=== PATIENT | female | born 1955 | race Caucasian/White ===

== ENCOUNTER 2025-04-02 14:37 | Outpatient (CLI) | payer OTHER, SELFPAY | END 2025-04-02 14:38 | disposition home or self-care (01) | PROVIDERS: PCP Family Medicine; Visit Provider Family Medicine | DX: R63.4 Abnormal weight loss (principal); R82.90 Unspecified abnormal findings in urine; Z68.24 Body mass index [BMI] 24.0-24.9, adult; Z79.899 Other long term (current) drug therapy | CPT/HCPCS: 80053; 82607; 84439; 84443; 87086 ==

== ENCOUNTER 2025-05-21 13:06 | Outpatient (CLI) | payer MEDICARE, SELFPAY | END 2025-05-21 13:07 | disposition home or self-care (01) | PROVIDERS: PCP Family Medicine; Visit Provider Family Medicine | DX: E05.90 Thyrotoxicosis, unspecified without thyrotoxic crisis or storm (principal); R79.89 Other specified abnormal findings of blood chemistry | CPT/HCPCS: 80076; 84439; 84480 ==

== ENCOUNTER 2025-05-30 11:07 | Outpatient (CLI) | payer MEDICARE, SELFPAY ==
--- NOTE | 2025-05-30 10:45 | CRLHL7_ITS ---
For Patients: As a result of the Century Cures Act, medical imaging exams and procedure reports are released immediately into your electronic medical record. You may view this report before your referring provider. If you have questions, please contact your health care provider. INDICATION: Abnormal LFTs, abnormal weight loss COMPARISON: none TECHNIQUE: Real time bennett scale imaging and color Doppler analysis was performed of the right upper quadrant. FINDINGS: The patient`s liver is of normal size and has uniform echogenicity. There is a normal appearance of the hepatic IVC and proximal abdominal aorta. There is no evidence of ascites. The gallbladder is of normal size and there is no evidence of intraluminal stones or sludge. The gallbladder wall measures 2 mm in thickness. The common bile duct is of normal size and measures 7 mm in diameter at the level of the william hepatis. The pancreas appears normal. There is no evidence of a stone or hydronephrosis within the right kidney. The right kidney measures 8.8 cm in length. IMPRESSION: Normal right upper quadrant ultrasound. Dictated by Aj Grimes MD @ 05/30/2025 12:05:18 PM (Electronically Signed)
== END 2025-05-30 11:08 | disposition home or self-care (01) ==
PROVIDERS: PCP Family Medicine; Visit Provider Family Medicine
DX: R79.89 Other specified abnormal findings of blood chemistry (principal); R63.4 Abnormal weight loss
CPT/HCPCS: 76705

== ENCOUNTER 2025-07-09 15:33 | Outpatient (CLI) | payer MEDICARE, SELFPAY | END 2025-07-09 15:34 | disposition home or self-care (01) | LOC: NFLDREF 07-15 17:21 | PROVIDERS: PCP Family Medicine; Referring Provider Family Medicine; Visit Provider Physician Assistant | DX: R53.83 Other fatigue (principal); R42 Dizziness and giddiness; Z79.899 Other long term (current) drug therapy; R79.89 Other specified abnormal findings of blood chemistry | CPT/HCPCS: 82306; 82728; 86038 ==

== ENCOUNTER 2025-07-22 09:18 | Outpatient (CLI) | payer MEDICARE, SELFPAY ==
--- NOTE | 2025-07-22 09:15 | CRLHL7_ITS ---
For Patients: As a result of the Century Cures Act, medical imaging exams and procedure reports are released immediately into your electronic medical record. You may view this report before your referring provider. If you have questions, please contact your health care provider. INDICATION: Dizziness and giddiness. TECHNIQUE: Brain and temporal bone MRI without and with contrast. 11 cc of Dotarem gadolinium based intravenous contrast administered. COMPARISON : None. FINDINGS: Inner ears/membranous labyrinths: Within normal limits. Internal auditory canals: Within normal limits. Cerebellopontine angle cisterns: Within normal limits. Posterior fossa structures: Within normal limits. Temporal bones/mastoid air cells: Within normal limits. No evidence of acute ischemia. No evidence of acute or chronic intracranial blood products. No mass or pathologic intracranial enhancement. Patchy FLAIR hyperintensity throughout the supratentorial white matter and brainstem, typical for chronic microvascular ischemic change. Ifdx-ok-rwznxfzu generalized parenchymal volume loss. No hydrocephalus or extra-axial collections. The pituitary gland, parasellar structures and optic chiasm are normal. All the major intracranial vascular structures demonstrate normal flow-related signal. The orbital contents are normal. No calvarial or skull base marrow replacing process. No obstructive sinus disease. No extracranial soft tissue findings. IMPRESSION: 1. Normal appearance of the internal auditory pathways on high resolution imaging of the temporal bones. No mass or pathologic enhancement within the internal auditory canals or CPA cisterns. Normal appearance of the 7th/8th cranial nerves. 2. No acute ischemia. No mass or pathologic enhancement within the brain. 3. Moderate burden of chronic microvascular ischemic changes. Varb-yt-lbpmmfkt generalized parenchymal volume loss. Dictated by Lee Martino MD @ 07/22/2025 4:27:33 PM (Electronically Signed)
== END 2025-07-22 09:19 | disposition home or self-care (01) ==
LOC: MRI 09:19
PROVIDERS: PCP Family Medicine; Visit Provider Physician Assistant
DX: R42 Dizziness and giddiness (principal); G31.9 Degenerative disease of nervous system, unspecified; G44.229 Chronic tension-type headache, not intractable; R26.89 Other abnormalities of gait and mobility
CPT/HCPCS: 70553; A9575

== ENCOUNTER 2025-08-06 18:15 | Emergency (ER) | payer MEDICARE, SELFPAY ==
--- OUTSIDE RECORDS SUMMARY | 2025-08-06 18:17 | XMS_ITS | Encounter Summary ---
Author Organization [facility] Address [address] [place] [address] Care Team Providers Care National Accounts Recruiter Name Role Phone Skye Yip DO Primary Care Provider [phone] Encounter Details Date Type Department Care Team (Late st Contact Info) Description 07/06/2017 Scanned History External to Transferred Record, Provider [facility] CARDIOLOG[facility] Social History Tobacco Use Types Packs/Day Years Used Date Smoking Tobacco: Never Assessed Comments Unknown Sex and Gender Information Value Date Recorded Sex Assigned at Female 10/08/2021 7:52 PM SEARCH ENGINE OPTIMIZATION STRATEGIST Legal Sex Female 2:31 PM CDT Gender Identity Female 10/08/2021 7:52 PM SEARCH ENGINE OPTIMIZATION STRATEGIST Sexual Orientation Straight 10/08/2021 7: 52 PM SEARCH ENGINE OPTIMIZATION STRATEGIST documented as of this encounter Plan of Treatment Not on file documented as of this encounter Visit Diagnoses Not on filedocumented in this encounter Care Teams National Accounts Recruiter Relationship Specialty Start Date End Date Skye Yip DO [address] [place] [address] PCP - General Family Practice 08/31/18 06/23/25 documented as of this encounter
--- OUTSIDE RECORDS SUMMARY | 2025-08-06 18:17 | XMS_ITS | Encounter Summary ---
Author Organization [facility] Address [address] [place] [address] Care Team Providers Care Strategy Intern Name Role Phone Skye Yip DO Primary Care Provider [phone] Reason for Visit * Reason Comments Refill meclizine (ANTIVERT) 25 MG tablet [Pharmacy Med Name: MECLIZINE 25MG RX TABLETS] Encounter Details Date Type Department Care Team (Late st Contact Info) Description 06/19/2025 [facility] [address] [place], [place] [address] Skye Yip DO [address] [place] [address] Refill (meclizine (ANTIVERT) 25 MG tablet [Pharmacy Med Name: MECLIZINE 25MG RX TABLETS]) Social History Tobacco Use Types Packs/Day Years Used Date Smoking Tobacco: Former Cigarettes 1 36 0 12/01/1975 - 12/01/2011 Smokeless Tobacco: Never Alcohol Use Standard Drinks/Week Comments Not Currently 0 (1 standard drink = 0.6 oz pur e alcohol) rarely Humiliation, Afraid, Rape, and Kick questionnair e Answer Date Recorded Fear of Current or Ex-Partner Not on file Emotionally Abused Not on file 02/14/2024 Within the last year, have y ou been kicked, hit, slapped, or otherwise physically hurt by your partner or ex-partner? No 02/14/2024 Within the last year, have y ou been raped or forced to have any kind of sexual activity by your partner or ex-partner? No 02/14/2024 PHQ-2 Answer Date Recorded PHQ-2 Score 1 05/07/2024 Comments No Sex and Gender Information Value Date Recorded Sex Assigned at Female 10/08/2021 7:52 PM BAGGING MACHINE OPERATOR Legal Sex Female 2:31 PM CDT Gender Identity Female 10/08/2021 7:52 PM BAGGING MACHINE OPERATOR Sexual Orientation Straight 10/08/2021 7: 52 PM BAGGING MACHINE OPERATOR documented as of this encounter Nursing Notes * Nancy Farris - 06/24/2025 12:25 PM CDT Medication Refill - Due for Visit Medication still pending, patient is due to be seen in the next 30 days. Called patient, was: Successful in reaching patient. We recently received a refill request for one of your medications. To continue managing your medication refills, your clinician would like to see you for a(n): Patient is due for a: Video/Office Visit Patient declined to schedule due to: Patient no longer receiving care within organization. Patient has moved recently and is no longer being seen at . Frontline Action: Remove pended medication and Sign Visit or if unable, route as low priority to Refill blending machine operator. * Ping Amador - 06/24/2025 9:37 AM CDT Medication Refill - Due for Visit Medication still pending, patient is due to be seen in the next 30 days. Called patient, was: unable to reach patient. 2nd call attempted. Unsuccessful in reaching patient. Frontline Action: Route to clinician identified in nursing documentation below. Clinician Action: Unsuccessful in reaching patient to schedule, requests refill. Please determine whether refill is appropriate. Recommend using ???Refuse All?? quick action to address request. * Ping Amador - 06/19/2025 1:14 PM CDT Medication Refill - Due for Visit Medication still pending, patient is due to be seen in the next 30 days. Called patient, was: unable to reach patient. 1st call attempted. Left message to call back. Scheduling Action: Patient needs to schedule an appointment in the next 30 days. If able to schedule, please document date of appointment and route to clinician/pool identified in nursing documentation below. * Karlene Bearden RN - 06/19/2025 9:19 AM CDT Further Assistance Needed on Refill from Medical Record Clerk Patient is due for Qualifying Visit or Qualifying Visit and lab(s). Medication is still pending. Patient is due for an Office/Video Visit in the next 30 days. Call Patient and document using .MROVERDUE. After attempting to schedule patient: If appointment is scheduled within 60 days: Please route to: Primary Care: Refill strategic solutions consultant Specialty Care: Refill strategic solutions consultant/Care Team Pool If unable to schedule appointment or scheduled greater than 60 days: Please route to: Skye Yip, Requested Prescriptions Pending Prescriptions Disp Refills meclizine (ANTIVERT) 25 MG tablet [Pharmacy Med Name: MECLIZINE 25MG RX TABLETS] 30 Tablet Sig: TAKE 1 TABLET(25 MG) BY MOUTH TWICE DAILY NEEDED * Pamela Nam Xrwcomm - 06/19/2025 3:17 AM CDT meclizine (ANTIVERT) 25 MG tablet [Pharmacy Med Name: MECLIZINE 25MG RX TABLETS] Medication started: 02/14/2024 Last ordered by SKYE YIP: 05/07/2024 (408 days ago) QTY: 30, Refills: 1, Sig: take 1 tablet (25 mg) by mouth two times daily as needed. (changed but equivalent) -> An office visit is overdue (performed 14 months ago, required every 12 months). Last qualifying visit: 05/07/2024 (with SKYE YIP) Next scheduled visit: None [facility] Embedded Refills, Reference: [id number], 06/19/2025 3:17:43 AM CDT, Pool: HP Refill Centralized Services - Primary Care ([id number]) documented in this encounter Plan of Treatment Not on file documented as of this encounter Visit Diagnoses Not on filedocumented in this encounter Care Teams Strategy Intern Relationship Specialty Start Date End Date Skye Yip DO [address] [place] [address] PCP - General Family Practice 08/31/18 06/23/25 documented as of this encounter
--- OUTSIDE RECORDS SUMMARY | 2025-08-06 18:17 | XMS_ITS | Encounter Summary ---
Author Organization [facility] Address [address] [place] [address] Care Team Providers Care Lay Out Technician Name Role Phone Skye Yip DO Primary Care Provider Encounter Details Date Type Department Care Team (Late st Contact Info) Description 09/20/2019 Correspondence Security Contact - Shelli Johnson No Primary/Referring , Phy MEDICAL NECESSITY FORM EYEWEAR BENEFIT Social History Tobacco Use Types Packs/Day Years Used Date Smoking Tobacco: Former Cigarettes Smokeless Tobacco: Never Alcohol Use Standard Drinks/Week Comments Yes 0 (1 standard drink = 0.6 oz pur e alcohol) rarely Comments No Sex and Gender Information Value Date Recorded Sex Assigned at Female 10/08/2021 7:52 PM LEGAL CASHIER Legal Sex Female 2:31 PM CDT Gender Identity Female 10/08/2021 7:52 PM LEGAL CASHIER Sexual Orientation Straight 10/08/2021 7: 52 PM LEGAL CASHIER documented as of this encounter Plan of Treatment Not on file documented as of this encounter Visit Diagnoses Not on filedocumented in this encounter Care Teams Lay Out Technician Relationship Specialty Start Date End Date Skye Yip DO [address] [place] [address] PCP - General Family Practice 08/31/18 06/23/25 documented as of this encounter
--- OUTSIDE RECORDS SUMMARY | 2025-08-06 18:17 | XMS_ITS | Encounter Summary ---
Author Organization [facility] Address [address] [place] [address] Care Team Providers Care Curator Of Education Name Role Phone Skye Yip DO Primary Care Provider [phone] Reason for Visit * Reason Comments Refill amiodarone (PACERONE ) 200 MG tablet [Pharmacy Med Name: AMIODARONE 200MG TABLETS] Encounter Details Date Type Department Care Team (Late st Contact Info) Description 06/20/2025 Refill [facility] [address] [facility] [place], [place] [address] China Briggs PA-C [address] [place] [address] Refill (amiodarone (PACERONE) 200 MG tablet [Pharmacy Med Name: AMIODARONE 200MG TABLETS]) Social History Tobacco Use Types Packs/Day [...] Sex Assigned at Female 10/08/2021 7:52 PM EDUCATION ADVISER Legal Sex Female 2:31 PM CDT Gender Identity Female 10/08/2021 7:52 PM EDUCATION ADVISER Sexual Orientation Straight 10/08/2021 7: 52 PM EDUCATION ADVISER documented as of this encounter Nursing Notes [...] unable, route as low priority to Refill spool hauler. * Pamela Nam Xrwcomm - 06/20/2025 3:18 AM CDT amiodarone (PACERONE) 200 MG tablet [Pharmacy Med Name: AMIODARONE 200MG TABLETS] Medication started: 07/26/2019 Last ordered by CHINA BRIGGS 07/10/2024 (345 days ago) QTY: 90, Refills: 0, Sig: take 1 tablet (200 mg) by mouth daily. (changed but equivalent) -> Medication cannot be delegated. -> A qualifying visit was not found within the last 2 years. Last qualifying visit: None (A recent visit (in Family Practice with SKYE YIP) was found) Next scheduled visit: None [facility] Embedded Refills, Reference: [id number], 06/20/2025 3:18:16 AM CDT, Pool: HP Refill Centralized Services - Primary Care ([id number]) documented in this encounter Plan of Treatment Not on file documented as of this encounter Visit Diagnoses Diagnosis PAF (paroxysmal atrial fibrillation) (HRC) Atrial fibrillation documented in this encounter Care Teams Curator Of Education Relationship Specialty Start Date End Date Skye Yip DO [address] [place] [address] PCP - General Family Practice 08/31/18 06/23/25 documented as of this encounter
--- OUTSIDE RECORDS SUMMARY | 2025-08-06 18:17 | XMS_ITS | Encounter Summary ---
Author Organization [facility] Address [address] [place] [address] Care Team Providers Care Program Services Assistant Name Role Phone Skye Yip DO Primary Care Provider [phone] Encounter Details Date Type Department Care Team (Late st Contact Info) Description 05/26/2017 Scanned History External to Transferred Record, Provider [facility] CARDIOLOG[facility] Social History Tobacco Use Types Packs/Day Years Used Date Smoking Tobacco: Never Assessed Comments Unknown Sex and Gender Information Value Date Recorded Sex Assigned at Female 10/08/2021 7:52 PM ADDRESSING MACHINE OPERATOR Legal Sex Female 2:31 PM CDT Gender Identity Female 10/08/2021 7:52 PM ADDRESSING MACHINE OPERATOR Sexual Orientation Straight 10/08/2021 7: 52 PM ADDRESSING MACHINE OPERATOR documented as of this encounter Plan of Treatment Not on file documented as of this encounter Visit Diagnoses Not on filedocumented in this encounter Care Teams Program Services Assistant Relationship Specialty Start Date End Date Skye Yip DO [address] [place] [address] PCP - General Family Practice 08/31/18 06/23/25 documented as of this encounter
--- OUTSIDE RECORDS SUMMARY | 2025-08-06 18:17 | XMS_ITS | Encounter Summary ---
Author Organization [facility] Address [address] [place] [address] Care Team Providers Care Oil Tester Name Role Phone Skye Yip DO Primary Care Provider Reason for Visit * Reason Comments Refill ELIQUIS 5 MG tablet [Pharmacy Med Name: ELIQUIS 5MG TABLETS] Encounter Details Date Type Department Care Team (Late st Contact Info) Description 06/19/2025 Telephone [facility] [address] [place], [place] [address] Skye Yip DO [address] [facility] [place] [address] Refill (ELIQUIS 5 MG tablet [Pharmacy Med Name: ELIQUIS 5MG TABLETS]) Social History Tobacco Use Types Packs/Day [...] Sex Assigned at Female 10/08/2021 7:52 PM MEDICAL CONSULTANT Legal Sex Female 2:31 PM CDT Gender Identity Female 10/08/2021 7:52 PM MEDICAL CONSULTANT Sexual Orientation Straight 10/08/2021 7: 52 PM MEDICAL CONSULTANT documented as of this encounter Nursing Notes * Nancy Farris - 06/24/2025 12:22 PM CDT Medication Refill - Due for [...] route as low priority to Refill spool tender. * Wang Sandhu - 06/20/2025 1:49 PM CDT Medication Refill - Due for [...] to clinician/pool identified in nursing documentation below. Wang Sandhu 06/20/2025, 1:49 PM * Skye Yip DO - 06/19/2025 8:23 AM CDT Please use .JANIA to schedule annual medicare / Med check / Fasting labs Thanks Health Maintenance Due Topic Date Due Lung Cancer Screening Never done Zoster/Shingles Vaccine (2 of 2) 08/06/2019 Dexa Never done Colonoscopy 07/07/2022 Cholesterol 02/09/2024 COVID-19 Vaccine ( season) 2024 Med Monitoring Hepatic (ALT) 08/30/2024 Med Monitoring TSH 08/30/2024 Prediabetes: HGBA1C 08/30/2024 Medicare Annual Wellness Visit 10/23/2024 Med Monitoring HEM (Hemogram/PLTS) 02/13/2025 Med Monitoring Renal (Creatinine) 02/13/2025 Med Monitoring Renal (Sodium) 02/13/2025 Med Monitoring Renal (Potassium) 02/13/2025 Mammogram 05/07/2025 * Pamela Namwcomkristina - 06/19/2025 3:17 AM CDT ELIQUIS 5 MG tablet [Pharmacy Med Name: ELIQUIS 5MG TABLETS] Medication started: 06/16/2021 Last ordered by SKYE YIP: 05/07/2024 (408 days ago) QTY: 180, Refills: 3, Sig: take 1 tablet (5 mg) by mouth two times a day. (changed but equivalent) -> The most recent order on 05/07/2025. -> Medication cannot be delegated. Last qualifying visit: 05/07/2024 (with SKYE YIP) Next scheduled visit: None [facility] Embedded Refills, Reference: [id number], 06/19/2025 3:17:43 AM CDT, Pool: Refill Centralized Services - Primary Care ([id number]) documented in this encounter Plan of Treatment Scheduled Orders Name Type Priority Associated Diagnoses Orde r Schedule Complete Blood Count -W/Diff Lab Routine Encounter for long-term (current) use of medications Expected: 06/19/2025, Expires: 09/17/2025 Hgb A1C Lab Routine Encounter for long-term (current) use of medications Expected: 06/19/2025, Expires: 06/19/2030 Lipid Panel & Direct LDL (if Needed) Lab Routine Encounter for long-term (current) use of medications Expected: 06/19/2025, Expires: 06/19/2030 Comprehensive Metabolic Panel Lab Routine Encounter for long-term (current) use of medications Expected: 06/19/2025, Expires: 06/19/2030 documented as of this encounter Visit Diagnoses Diagnosis Encounter for long-term (current) use of medications- Primary Encounter for long-term (current) use of other medications documented in this encounter Care Teams Oil Tester Relationship Specialty Start Date End Date Skye Yip DO [address] [place] [address] PCP - General Family Practice 08/31/18 06/23/25 documented as of this encounter
--- OUTSIDE RECORDS SUMMARY | 2025-08-06 18:17 | XMS_ITS | Encounter Summary ---
Author Organization [facility] Address [address] [place] [address] Care Team Providers Care Processing Archivist Name Role Phone Skye Yip DO Primary Care Provider [phone] Reason for Visit * Reason Comments Refill Encounter Details Date Type Department Care Team (Late st Contact Info) Description 06/23/2025 Refill [facility] [address] [facility] [place], [place] [address] Erlinda Loera MD [address] [place], [place] [address] Refill Social History Tobacco Use Types Packs/Day Years [...] Sex Assigned at Female 10/08/2021 7:52 PM HUMAN RESOURCES SUPERVISOR Legal Sex Female 2:31 PM CDT Gender Identity Female 10/08/2021 7:52 PM HUMAN RESOURCES SUPERVISOR Sexual Orientation Straight 10/08/2021 7: 52 PM HUMAN RESOURCES SUPERVISOR documented as of this encounter Nursing Notes * Erlinda Loera MD - 08/04/2025 9:11 AM CDT Per PDMP gabapentin Rx per Brooks Smart MD 09/12/25 and 02/19/25 has not been filled since. Rx declined, no refills from this clinic without a completed appointment. * Destiny Crump RN - 08/04/2025 8:04 AM CDT Last appt 04/23/24. Follow up appt due July 2024. Left message to call back for assessment and appt. Routed to Dr. Loera for review. Pt has been contacted multiple times about scheduling a f/u appt, but no response. Okay to deny refill for now? * Ghazal Ambriz RN - 07/24/2025 3:49 PM CDT MyChart sent with assessment questions and request to schedule (second attempt to contact). Pt may need one more phone call if no response. * Destiny Crump RN - 07/01/2025 9:16 AM CDT Last appt 04/23/24. Follow up appt due July 2024. Left message to call back for assessment and appt. * Aixa Becerra - 06/26/2025 8:05 AM CDT Appt overdue (needs call) documented in this encounter Plan of Treatment Not on file documented as of this encounter Visit Diagnoses Diagnosis Generalized anxiety disorder (HRC) Generalized anxiety disorder documented in this encounter Care Teams Processing Archivist Relationship Specialty Start Date End Date Skye Yip DO [address] [place] [address] PCP - General Family Practice 08/31/18 06/23/25 documented as of this encounter
--- OUTSIDE RECORDS SUMMARY | 2025-08-06 18:17 | XMS_ITS | Encounter Summary ---
Author Organization [facility] Address [address] [place] [address] Care Team Providers Care Copy Worker Name Role Phone Skye Yip DO Primary Care Provider [phone] Encounter Details Date Type Department Care Team (Late st Contact Info) Description 07/06/2017 Scanned History External to Transferred Record, Provider [facility] CARDIOLOG[facility] Social History Tobacco Use Types Packs/Day Years Used Date Smoking Tobacco: Never Assessed Comments Unknown Sex and Gender Information Value Date Recorded Sex Assigned at Female 10/08/2021 7:52 PM LOADER MACHINE Legal Sex Female 2:31 PM CDT Gender Identity Female 10/08/2021 7:52 PM LOADER MACHINE Sexual Orientation Straight 10/08/2021 7: 52 PM LOADER MACHINE documented as of this encounter Plan of Treatment Not on file documented as of this encounter Visit Diagnoses Not on filedocumented in this encounter Care Teams Copy Worker Relationship Specialty Start Date End Date Skye Yip DO [address] [place] [address] PCP - General Family Practice 08/31/18 06/23/25 documented as of this encounter
--- OUTSIDE RECORDS SUMMARY | 2025-08-06 18:17 | XMS_ITS | Encounter Summary ---
Author Organization [facility] Address [address] [place] [address] Care Team Providers Care Eyewear Consultant Name Role Phone Unavailable Primary Care Provider Unavailabl e Reason for Visit * Reason Comments Refill meclizine (ANTIVERT) 25 MG tablet [Pharmacy Med Name: MECLIZINE 25MG RX TABLETS] Encounter Details Date Type Department Care Team (Late st Contact Info) Description 07/01/2025 Refill [facility] [address] [place], [place] [address] Skye Yip, DO [address] [place], [place] [phone] Refill (meclizine (ANTIVERT) 25 MG tablet [Pharmacy [...] Sex Assigned at Female 10/08/2021 7:52 PM PHOTOGRAPHY AND PRINTS CURATOR Legal Sex Female 2:31 PM CDT Gender Identity Female 10/08/2021 7:52 PM PHOTOGRAPHY AND PRINTS CURATOR Sexual Orientation Straight 10/08/2021 7: 52 PM PHOTOGRAPHY AND PRINTS CURATOR documented as of this encounter Nursing Notes * Aura Horner, RN - 07/02/2025 9:13 AM CDT Refill request denied. Request sent to incorrect clinician. * Pamela Nam Xrwcomm - 07/01/2025 3:18 AM CDT meclizine (ANTIVERT) 25 MG tablet [Pharmacy Med Name: MECLIZINE 25MG RX TABLETS] Medication started: 02/14/2024 Last ordered by SKYE YIP: 05/07/2024 (420 days ago) QTY: 30, Refills: 1, Sig: take 1 tablet (25 mg) by mouth two times daily as needed. (changed but equivalent) -> An office visit is overdue (performed 14 months ago, required every 12 months). Last qualifying visit: 05/07/2024 (with SKYE YIP) Next scheduled visit: None [facility] Embedded Refills, Reference: [id number], 07/01/2025 3:18:13 AM CDT, Pool: Refill Centralized Services - Primary Care ([id number]) documented in this encounter Plan of Treatment Not on file documented as of this encounter Visit Diagnoses Not on filedocumented in this encounter
--- OUTSIDE RECORDS SUMMARY | 2025-08-06 18:18 | XMS_ITS | Clinical Summary ---
Author Organization [facility] Address [facility] [place] [address] Care Team Providers Care Surfboard Maker Name Role Phone No Ref-Primary, Physician Primary Care Provider Allergies Active Allergy Reactions Criticality Noted Date Comments Other Drug Allergy (See Comments) 06/16/2021 Opiates Penicillins Other (See Comments) 02/19/2018 Makes her symptoms worse Medications atorvastatin (LIPITOR) 40 MG tablet Take 40 mg by mouth daily 9 Active furosemide (LASIX) 20 MG tablet TAKE ONE TABLET BY MOUTH EVERY DAY 8 Active pantoprazole (PROTONIX) 20 MG EC tablet Take 20 mg by mouth daily 8 Active medical cannabis (Patient's own supply) 1 Dose by Other route See Admin Instructions Oil (The purpose of this order is to document that the patient reports taking medical cannabis. This is not a prescription, and is not used to certify that the patient has a qualifying medical condition.) Active ezetimibe (ZETIA) 10 MG tablet Take 10 mg by mouth daily Active sertraline (ZOLOFT) 100 MG tablet Take 200 mg by mouth daily Active amiodarone (PACERONE) 200 MG tabletIndication s:Paroxysmal atrial fibrillation with RVR (H) Take 1 tablet (200 mg) by mouth daily 30 tablet 1 Active metoprolol succinate ER (TOPROL-XL) 25 MG 24 hr tabletIndication s:Paroxysmal atrial fibrillation with RVR (H) Take 1 tablet (25 mg) by mouth daily 30 tablet 1 Active Active Problems Problem Noted Date Diagnosed Date Hypokalemia 06/16/2021 Paroxysmal atrial fibrillation with RVR 06/16/20 21 Social History Tobacco Use Types Packs/Day Years Used Date Smoking Tobacco: Never Smokeless Tobacco: Never Adolescent Education Answer Date Record ed Getting School Help Needed Not on file 07/14 Comments No Sex and Gender Information Value Date Recorded Sex Assigned at Not on file Legal Sex Female 9:15 AM CDT Gender Identity Not on file Sexual Orientation Not on file Last Filed Vital Signs Vital Sign Reading Time Taken Comments Blood Pressure 144/71 06/16/2021 12:52 PM CDT Pulse 68 06/16/2021 12:52 PM CDT Temperature 37 C (98.6 F) 06/16/2021 12:52 PM CDT Respiratory Rate 18 06/16/2021 1:00 PM CDT Oxygen Saturation 92% 06/16/2021 12:52 PM CDT Inhaled Oxygen Concentration - - Weight 81.3 kg (179 lb 4.8 oz) 06/16/2021 2:21 P M CDT Height 160 cm (5' 3) 11/19/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 Intubation to prevent or reverse respiratory instability may be performed. Question Answer Comments Code status determined by: Discussion with patie nt/ legal decision maker Care Teams Surfboard Maker Relationship Specialty Start Date End Date No Ref-Primary, Physician PCP - General 06/01/19
--- OUTSIDE RECORDS SUMMARY | 2025-08-06 18:18 | XMS_ITS | Clinical Summary ---
Author Organization [facility] Address [address] [place] [address] Care Team Providers Care Service Center Assistant Name Role Phone Unavailable Primary Care Provider Unavailabl e Source Comments You are receiving this document as you are listed as the primary care provider,follow-up provider, or the patient has been referred to you for consultation.This is in compliance with the Medicare andMedicaid EHR Incentive Program,which states Providers who transition their patient to another setting of careor provider of care or refers their patient to another provider of care shouldprovide summary care record for each transition of care or referral. [facility] Allergies Active Allergy Reactions Criticality Noted Date Comments Other Itching,Other, see comments 06/23/2021 Pain pills Penicillins Other, see comments 02/19/2018 Makes her symptoms worse Medications Coenzyme Q10 (CO Q 10 OR) Active medical cannabis patient certified 05/06/20 21 Active cyclobenzaprine (FLEXERIL) 10 MG tablet TAKE 1 TABLET(10 MG) BY MOUTH THREE TIMES DAILY NEEDED FOR MUSCLE SPASMS 30 Tablet 01/23/[address] (PROTONIX) 40 MG tabletIndicatio ns:Gastritis determined by endoscopy take 1 tablet daily 90 Tablet 2 04/05/20 24 Active atorvastatin (LIPITOR) 40 MG tabletIndicatio ns:CAD S/P percutaneous coronary angioplasty (HRC),Hyperchol esterolemia take 1 tablet daily 90 Tablet 2 04/05/20 24 Active meclizine (ANTIVERT) 25 MG tablet Take 1 Tablet (25 mg) by mouth two times daily as needed. 30 Tablet 1 07/16/20 24 Active amiodarone (PACERONE) 200 MG tabletIndicatio ns:PAF (paroxysmal atrial fibrillation) (HRC) Take 1 Tablet (200 mg) by mouth daily. 90 Tablet 07/10/20 24 Active ezetimibe (ZETIA) 10 MG tablet Take 1 Tablet (10 mg) by mouth daily. 90 Tablet 07/10/20 24 Active metoprolol succinate (TOPROL XL) 25 MG 24 hour release tablet Take 1 Tablet (25 mg) by mouth daily. 90 Tablet 07/10/20 24 Active FLUoxetine (PROZAC) 40 MG capsuleIndicati ons:Generalized anxiety disorder (HRC),Posttraum atic stress disorder (HRC) Take 1 Capsule (40 mg) by mouth daily. No further refills until appointment completed in 07/2024. 90 Capsule 04/23/20 24 025 Discontinued gabapentin (NEURONTIN) 100 MG capsuleIndicati ons:Generalized anxiety disorder (HRC) Take 1 Capsule (100 mg) by mouth every 24 hours as needed. for anxiety 30 Capsule 04/23/20 24 025 Discontinued Active Problems Patient Care Coordination No te Formatting of this note migh t be different from the original. This is an FYI only. No action from the clinic is required. Rosamaria Alvarez is enrolled in [facility] Please see the Problem List for care plan and Wetlands Conservation Laborer contact information. BRANDAN Gómez 05/25/2023 1:16 PM [facility] CARE MANAGMENT Rosamaria Alvarez is enrolled in the [facility] ([facility] [place] care coordination program and is assigned to a [facility] Wetlands Conservation Laborer. The palliative care nurse practitioner's role is to connect patients with home and community based supports and services when needed, reinforce your plan of care and to provide additional education, resources and assistance. The patient's care plan, including home health care services, if applicable, is faxed to the clinic and can be found under the Media tab if the clinic scans it into [facility]. For questions and collaboration, please contact the [facility] Wetlands Conservation Laborer listed in the care team. Rosamaria Alvarez reports having some dependencies with cleaning, laundry and grocery shopping. She is independent with personal cares. She also reports having some problems with vertigo and Tinnitus which affects her balance, causing her to be at risk for falls. She agrees to have an assessment to determine if she qualifies for Elderly Waivered services. A [facility] Wetlands Conservation Laborer will be contacting her to complete the EW assessment. Yeceniabrionna Urbaney, PET COUNSELOR 06/16/2022, 9:33 AM Problem Noted Date Diagnosed Date Posttraumatic stress disorder 12/18/2023 Generalized anxiety disorder 12/18/2023 Cannabis dependence 12/18/2023 Hyperparathyroidism 02/27/2023 PUD (peptic ulcer disease) 02/08/2023 Cervicalgia 02/08/2023 Former tobacco use 02/08/2023 Lumbar herniated disc 02/08/2023 Peripheral neuropathy 06/29/2022 Prediabetes 06/29/2022 PAF (paroxysmal atrial fibrillation) 08/10/2021 Tinnitus, bilateral 08/18/2020 Overview (08/18/2020): Chronic Shoulder arthritis 02/04/2020 Heme positive stool 01/08/2020 Overview (08/18/2020): 08/18/2020 Discussed overdue for colonoscopy Cervical cancer screening 06/26/2019 Overview (06/26/2019): Per visit note 06/17/19, last Pap was 30 years ago 2019 NILM, HPV negative 64 y.o. Plan: Co-test 05/2022 Dyslipidemia 09/07/2018 Overview (09/07/2018): LDL 164 09/07/2018 [facility] Summary:A history of previous ASCVD (heart attack or stroke) has been identified. Cardiovascular risk could be reduced with attention to the following, in order of priority: statin use or intensification; improving blood sugar control; [facility] Gastritis determined by endoscopy 09/05/2018 S/P ablation of atrial fibrillation 08/31/2018 CAD S/P percutaneous coronary angioplasty 2017 Benign paroxysmal positional vertigo 02/23/2018 Insomnia 02/23/2018 RUQ abdominal pain 02/23/2018 Overview (02/23/2018): chronic.the patinet states that this was evaluated in [place] with an . Plan was to do a HIDA but this was not done due to cost concerns Resolved Problems Problem Noted Date Diagnosed Date Resolved Date Hypercholesterolemia 02/23/2018 018 Encounters Date Type Department Care Team Description 07/01/2025 Refill [facility] [address] [place] [address] Skye Yip DO Refill (meclizine (ANTIVERT) 25 MG tablet [Pharmacy Med Name: MECLIZINE 25MG RX TABLETS]) 06/23/2025 Refill [place] [facility] [address] [place] [address] [place] [address] Erlinda Loera MD Refill 06/20/2025 Refill [place] [address] [place] [address] China Briggs PA-C Refill (amiodarone (PACERONE) 200 MG tablet [Pharmacy Med Name: AMIODARONE 200MG TABLETS]) 06/19/2025 Refill [place] [address] [place] [address] Skye Yip DO Refill (meclizine (ANTIVERT) 25 MG tablet [Pharmacy Med Name: MECLIZINE 25MG RX TABLETS]) 06/19/2025 Refill [facility] [place] [address] [place] [address] China Briggs PA-C Refill (metoprolol succinate (TOPROL XL) 25 MG 24 hour release tablet [Pharmacy Med Name: METOPROLOL ER SUCCINATE 25MG TABS]) 06/19/2025 Telephone [place] [address] [place] [address] Skye Yip DO Refill (ELIQUIS 5 MG tablet [Pharmacy Med Name: ELIQUIS 5MG TABLETS]) from Last 3 Months Immunizations Immunization Administration Dates Next Due Influenza IIV4 (Quadrivalent) 0.5mL (63229) 12/21,10/24/2018 PCV20 ([id number]) 02/08/2023 Pfizer Monovalent 12+ Purple Top 03/10/2021,01/22 Tdap 05/07/2024 Zoster RZV (Shingrix) 06/11/2019 Family History Medical History Relation Name Comments Cancer Mother Aruna Delavlle Heart Disease Mother Aruna Delvalle Passed on High Cholesterol Mother Aruna Delvalle Hypertension Mother Aruna Delvalle Kidney/Bladder Disease Mother Aruna Delvalle Stroke Mother Aruna Delvalle Cancer, Breast Negative Family History Cancer, Ovary Negative Family History Cataract Negative Family History Glaucoma Negative Family History Macular Degeneration Negative Family History Retinal Detachment Negative Family History Relation Name Status Comments Father Other Mother Aruna Delvalle Social History Tobacco Use Types Packs/Day Years Used Date Smoking Tobacco: Former Cigarettes 1 36 0 12/01/1975 - 12/01/2011 Smokeless Tobacco: Never Tobacco Cessation:Counseling Given: Not Answered Alcohol Use Standard Drinks/Week Comments Not Currently [...] Sex Assigned at Female 10/08/2021 7:52 PM VULCANIZING PRESS OPERATOR Legal Sex Female 2:31 PM CDT Gender Identity Female 10/08/2021 7:52 PM VULCANIZING PRESS OPERATOR Sexual Orientation Straight 10/08/2021 7: 52 PM VULCANIZING PRESS OPERATOR Last Filed Vital Signs Vital Sign Reading Time Taken Comments Blood Pressure 133/68 05/07/2024 11:49 AM CDT Pulse 49 05/07/2024 11:49 AM CDT Temperature 36.6 C (97.9 F) 02/14/2024 5:18 PM CDT Respiratory Rate 18 02/14/2024 6:30 PM CDT Oxygen Saturation 98% 02/14/2024 8:00 PM CDT Inhaled Oxygen Concentration - - Weight 74.2 kg (163 lb 9.6 oz) 05/07/2024 11:49 AM CDT Height 158.8 cm (5' 2.52) 05/07/2024 11:49 AM C DT Body Mass Index 29.43 05/07/2024 11:49 AM CDT Plan of Treatment Health Maintenance Due Date Last Done Comments Lung Cancer Screening 1955 Zoster/Shingles Vaccine (2 of 2) 08/06/2019 06/11/2019 Dexa 01/12/2021 Colonoscopy 07/07/2022 07/06/2022 Cholesterol 02/09/2024 02/08/2023, 06/24, 08/24/2020, Additional history exists Med Monitoring Hepatic (ALT) 08/30/2024 08/30/2023 (Completed), 11/04/2022 (Completed), 07/21/2021 (Completed), Additional history exists Med Monitoring TSH 08/30/2024 08/30/2023, 0 11/04/2022, 07/04/2022, Additional history exists Prediabetes: HGBA1C 08/30/2024 08/30/2023, 07/04/2022, 08/24/2020, Additional history exists Medicare Annual Wellness Visit 10/23/2024 06/03/2024, 02/27/2023, 07/21/2021 Med Monitoring HEM (Hemogram/PLTS) 02/13/2025 02/14/2024, 08/30/2023, 07/04/2022, Additional history exists Med Monitoring Renal (Creatinine) 02/13/2025 02/14/2024, 08/30/2023, 11/04/2022, Additional history exists Med Monitoring Renal (Potassium) 02/13/2025 02/14/2024, 08/30/2023, 11/04/2022, Additional history exists Med Monitoring Renal (Sodium) 02/13/2025 02/14/2024, 08/30/2023, 11/04/2022, Additional history exists Mammogram 05/07/2025 05/07/2024, 12/22, 07/31/2019, Additional history exists COVID-19 Vaccine (3 - season) 2025 03/10/2021, 02/18/2021 Influenza Vaccine (#1) 2025 01/03/2020, 2018 RSV Vaccine (1 - 1-dose 75+ series) 01/12/2031 DTaP/Tdap/Td Vaccine (2 - Tdap) 05/07/2034 05/07/2024 Hep C Screening (Preventive Services) Completed 09/05/2018 Cervical Cancer Screening Discontinued 06/17/2019, FIT Colon Cancer Screening Discontinued 01/07/2020, Pneumococcal Vaccine 50+ Yrs Completed 02/08/2023 HepA Vaccine Aged Out No longer eligi ble based on patient's age to complete this topic HepB Vaccine Aged Out No longer eligi ble based on patient's age to complete this topic Hib Vaccine Aged Out No longer eligi ble based on patient's age to complete this topic IPV (Polio) Vaccine Aged Out No longe r eligible based on patient's age to complete this topic MCV4 Vaccine Aged Out No longer eligi ble based on patient's age to complete this topic Meningococcal B Vaccine Aged Out No l onger eligible based on patient's age to complete this topic Procedures Procedure Name Priority Date/Time Associated Diagnosis Comments MM MAMMOGRAM SCREENING BILAT W CAD Routine 05/07/2024 11:23 AM CDT Encounter for screening mammogram for malignant neoplasm of breast BASIC METABOLIC PANEL STAT 02/14/2024 5:24 PM CDT COMPLETE BLOOD COUNT-W/DIFF STAT 02/14/2024 5:24 PM CDT HGB A1C Routine 08/30/2023 11:52 AM VULCANIZING PRESS OPERATOR PAF (paroxysmal atrial fibrillation) (HRC) Abnormal finding of blood chemistry, unspecified TSH, SENSITIVE (WITH REFLEX) Routine 08/30/2023 11:52 AM VULCANIZING PRESS OPERATOR S/P ablation of atrial fibrillation LIPID PANEL & DIRECT LDL (IF NEEDED) Routine 02/08/2023 10:25 AM CDT Screening for endocrine, nutritional, metabolic and immunity disorder COLONOSCOPY Routine 07/06/2022 1:39 PM CDT Positive FIT (fecal immunochemical test) Rectal bleeding ALT (SGPT) Routine 08/24/2020 4:14 PM VULCANIZING PRESS OPERATOR KALLIE (generalized anxiety disorder) FIT,OCCULT BLOOD, STOOL Routine 01/07/2020 8:00 AM CDT Screen for colon cancer CYTOLOGY (PAP) Routine 06/17/2019 3:22 PM CDT Screening for cervical cancer HEPATITIS C ANTIBODY, WITH REFLEX (ANTI-HCV) Routine 09/05/2018 3:09 PM VULCANIZING PRESS OPERATOR Need for hepatitis C screening test from Last 3 Months or Most Recently Relevant to Health Maintenance Results * MM Mammogram Screening Bilat W CAD (05/07/2024 11:23 AM CDT) Anatomical Region Laterality Modality Breast Bilateral Mammography Impressions 05/08/2024 11:43 AM CDT : ACR BI-RADS Category 2: Benign RECOMMENDATION: Follow Up Imaging in 12 months - Bilateral The results and recommendations of this examination will be communicated to the patient. Narrative 05/08/2024 11:43 AM CDT MM MAMMOGRAM SCREENING BILAT W CAD performed on 05/07/24 Compared to: 01/11/2023 MM Mammogram Screening Bilat W CAD, 07/31/2019 MM Mammogram Screening Bilat W CAD, and 05/11/2009 Foreign Image(S) Mammogram Bilateral Screening FINDINGS: Bilateral screening mammogram was performed with the assistance of Computer-Aided Detection . There are scattered areas of fibroglandular density. There are changes of breast reduction. There is no radiographic evidence of malignancy. us Skye Yip DO RAD SARAH Final Result * (ABNORMAL) Complete Blood Count-W/Diff (02/14/2024 5:24 PM CDT) WBC 10.8(H) 3.5 - 10.5 x10(9)/L 02/14/2024 5:32 PM CDT [facility] RBC 4.64 3.90 - 5.03 x10(12)/L 02/14/2024 5:32 PM CDT [facility] Hemoglobin 13.8 12.0 - 15.5 g/dL 02/14/2024 5:32 PM CDT [facility] HCT 40.2 34.9 - 44.5 % 02/14/2024 5:32 PM CDT [facility] MCV 86.6 80.0 - 100.0 fL 02/14/2024 5:32 PM CDT [facility] MCH 29.7 27.6 - 33.3 pg 02/14/2024 5:32 PM CDT [facility] MCHC 34.3 31.5 - 35.2 g/dL 02/14/2024 5:32 PM CDT [facility] RDW 13.6 11.9 - 15.5 % 02/14/2024 5:32 PM CDT [facility] Platelets 266 150 - 450 x10(9)/L 02/14/2024 5:32 PM CDT [facility] Automated NRBC 0 <=0 /100 WBC 02/14/2024 5:32 PM CDT [facility] Neutrophil Absolute 8.1(H) 1.7 - 7.0 10(9)/L 02/14/2024 5:32 PM CDT [facility] Lymphocyte Absolute 1.9 1.0 - 4.8 10(9)/L 02/14/2024 5:32 PM CDT [facility] Monocyte Absolute 0.6 0.2 - 0.9 10(9)/L 02/14/2024 5:32 PM CDT [facility] Eosinophil Absolute 0.0 0.0 - 0.5 10(9)/L 02/14/2024 5:32 PM CDT [facility] Basophil Absolute 0.1 0.0 - 0.3 10(9)/L 02/14/2024 5:32 PM CDT [facility] Immature Granulocyte % 0.4 0.0 - 0.5 % 02/14/2024 5:32 PM CDT [facility] Blood Venipuncture / Unknown 02/14/2024 5:24 PM CDT 02/14/2024 5:29 PM CDT Lucas Mccray MD LAB_1 Final Result Performing Organization Address City/[facility]/ZIP Co de Phone Number [facility] [address] * (ABNORMAL) Basic Metabolic Panel (02/14/2024 5:24 PM CDT) [facility] Sodium 139 136 - 145 mmol/L 02/14/2024 5:56 PM CDT [facility] Potassium 3.5 3.5 - 5.1 mmol/L 02/14/2024 5:56 PM CDT [facility] Chloride 107 98 - 109 mmol/L 02/14/2024 5:56 PM CDT [facility] CO2 24 20 - 29 mmol/L 02/14/2024 5:56 PM CDT [facility] Anion Gap 8 6 - 16 mmol/L 02/14/2024 5:56 PM CDT [facility] Calcium 9.5 8.4 - 10.4 mg/dL 02/14/2024 5:56 PM CDT [facility] BUN 15 7 - 26 mg/dL 02/14/2024 5:56 PM CDT [facility] Creatinine 0.84 0.55 - 1.02 mg/dL 02/14/2024 5:56 PM CDT [facility] Glucose 137(H) 70 - 100 mg/dL 02/14/2024 5:56 PM CDT [facility] Comment:The given reference range is for the fasting state. Non-fasting reference range for glucose is 70 - 180 mg/dL. GFR, Estimated >60 >60 mL/min/1.7 3m2 02/14/2024 5:56 PM CDT [facility] Blood Venipuncture / Unknown 02/14/2024 5:24 PM CDT 02/14/2024 5:29 PM CDT Lucas Mccray MD LAB_1 Final Result [facility] [address] [place], [place] [address] * TSH with Free T4 (if TSH Abnormal) (08/30/2023 11:52 AM VULCANIZING PRESS OPERATOR) TSH, Reflex 0.83 0.30 - 4.50 uIU/mL 08/30/2023 3:43 PM VULCANIZING PRESS OPERATOR [facility] Blood Venipuncture / Unknown 08/30/2023 11:52 AM VULCANIZING PRESS OPERATOR 08/30/2023 11:52 AM VULCANIZING PRESS OPERATOR Skye Fields Ecitzeltam DO LAB_1 Final Result Performing Organization Address [facility]/ZIP Co de Phone Number [facility] [address] [place] [address] * Hgb A1C (08/30/2023 11:52 AM VULCANIZING PRESS OPERATOR) Hemoglobin A1C 5.6 <=5.6 % 08/30/2023 4:47 PM VULCANIZING PRESS OPERATOR [facility] Estimated Average Glucose (Calc) 114 < 117 mg/dL 08/30/2023 4:47 PM [facility] Comment:Estimated average gl ucose (eAG) converts A1c into glucose units (mg/dL) and estimates average glucose over the past approximately 3 months. The eAG reference interval (<117 mg/dL) corresponds to an A1c of <5.7%. Blood Venipuncture / Unknown 08/30/2023 11:52 AM VULCANIZING PRESS OPERATOR 08/30/2023 11:52 AM VULCANIZING PRESS OPERATOR Skye Fields Eckstam DO LAB_1 Final Result Performing Organization Address [facility]/ZIP Co de Phone Number [facility] [address] [place] [address] * Lipid Panel and Direct LDL(If Needed) (02/08/2023 10:25 AM CDT) Cholesterol 166 0 - 199 mg/dL 02/08/2023 4:04 PM CDT [facility] Triglyceride 140 <=149 mg/dL 02/08/2023 4:04 PM CDT [facility] HDL Cholesterol 65 >=40 mg/dL 02/08/2023 4:04 PM CDT [facility] LDL, Calculated 73 <130 mg/dL 02/08/2023 4:04 PM CDT [facility] Non HDL Chol, Calculated 101 <=159 mg/dL 02/08/2023 4:04 PM CDT [facility] Cholesterol/HDL Ratio 2.6 02/08/2023 4:04 PM CDT [facility] Hours Fasting 12 02/08/2023 4:04 PM CDT [facility] Blood Venipuncture / Unknown 02/08/2023 10:25 AM CDT 02/08/2023 10:25 AM CDT us Skye Fields Eckstam DO LAB_1 Final Result Performing Organization Address City/State/[facility] Co de Phone Number [facility] [address] [address] [phone] [facility] [address] [place] [address], [facility] [phone] * COLONOSCOPY [[id number]] (07/06/2022 1:39 PM CDT) 07/06/2022 1:39 PM CDT Narrative GI (PROVATION) - 07/06/2022 2:30 PM CDT Instrument Name: [id number] Indications: Positive fecal immunochemical test Providers: Shade Cabello MD, Shanon Echeverria Patient Profile: This is a 67 year old female here for +FIT; no FH CRC/polyps. Took apixaban yesterday. The bowel preparation used was Golytely Bowel Prep. Referring MD: Jerson Saenz MD Medicines: Propofol per Anesthesia Complications: No immediate complications. Procedure: Pre-Anesthesia Assessment: - See the other procedure note for documentation of the pre-procedure assessment. After I obtained informed consent, the scope was passed under direct vision. Prior to sedation, patient identity and procedure was reverified. Throughout the procedure, the patient's blood pressure, pulse, and oxygen saturations were monitored continuously. The [id number] was introduced through the anus and advanced to the terminal ileum, with identification of the appendiceal orifice and IC valve. The colonoscopy was performed without difficulty. The patient tolerated the procedure well. The quality of the bowel preparation was evaluated using the BBPS ([place] Bowel Preparation Scale) with scores of: Right Colon = 2 (minor amount of residual staining, small fragments of stool and/or opaque liquid, but mucosa seen well), Transverse Colon = 3 (entire mucosa seen well with no residual staining, small fragments of stool or opaque liquid) and Left Colon = 3 (entire mucosa seen well with no residual staining, small fragments of stool or opaque liquid). The total BBPS score equals 8. The quality of the bowel preparation was good. Findings: The terminal ileum appeared normal. The cecum appeared normal. A few small and large-mouthed diverticula were found in the ascending colon. The descending colon and transverse colon appeared normal. A few small-mouthed diverticula were found in the sigmoid colon. A 3 mm polyp was found in the sigmoid colon. The polyp was sessile. Polypectomy was not attempted due to anticoagulation. A few flat polyps were found in the rectum. The polyps were 1 to 2 mm in size. Polypectomy was not attempted due to anticoagulation. Non-bleeding internal hemorrhoids were found during retroflexion. The hemorrhoids were small. Impression: - The examined portion of the ileum was normal. - The cecum is normal. - Diverticulosis in the ascending colon. - The descending colon and transverse colon are normal. - Diverticulosis in the sigmoid colon. - One 3 mm polyp in the sigmoid colon (approximately 15 cm from anal verge). Resection not attempted. - A few 1 to 2 mm polyps in the rectum. Resection not attempted. - Non-bleeding internal hemorrhoids. - No specimens collected. Recommendation: - Perform a flexible sigmoidoscopy for polypectomy at the next available appointment [facility] - Patient's sedation for a repeat study will require Anesthesia staff assistance. - Return to referring physician. Procedure Code(s): --- Professional --- 98782, Colonoscopy, flexible; diagnostic, including collection of specimen(s) by brushing or washing, when performed (separate procedure) Diagnosis Code(s): --- Professional --- K64.8, Other hemorrhoids K63.5, Polyp of colon K62.1, Rectal polyp R19.5, Other fecal abnormalities K57.30, Diverticulosis of large intestine without perforation or abscess without bleeding CPT copyright 2020 [employer]. All rights reserved. The codes documented in this report are preliminary and upon branding machine operator review may be revised to meet current compliance requirements. Attending Participation: Shade Cabello MD 07/06/2022 2:30:36 PM This report has been signed electronically. Number of Addenda: 0 Note Initiated On: 07/06/2022 1:39 PM Procedure Note Shade Cabello MD - 07/06/2022 Instrument Name: [id number] Indications: Positive fecal immunochemical test Providers: Shade Cabello MD, Shanon Echeverria Patient Profile: This is a 67 year old female here for +FIT; no FH CRC/polyps. Took apixaban yesterday. The bowel preparation used was Golytely Bowel Prep. Referring MD: Jerson Saenz MD Medicines: Propofol per Anesthesia Complications: No immediate complications. Procedure: Pre-Anesthesia Assessment: - See the other procedure note for documentation of the pre-procedure assessment. After I obtained informed consent, the scope was passed under direct vision. Prior to sedation, patient identity and procedure was reverified. Throughout the procedure, the patient's blood pressure, pulse, and oxygen saturations were monitored continuously. The [id number] was introduced through the anus and advanced to the terminal ileum, with identification of the appendiceal orifice and IC valve. The colonoscopy was performed without difficulty. The patient tolerated the procedure well. The quality of the bowel preparation was evaluated using the BBPS ([place] Bowel Preparation Scale) with scores of: Right Colon = 2 (minor amount of residual staining, small fragments of stool and/or opaque liquid, but mucosa seen well), Transverse Colon = 3 (entire mucosa seen well with no residual staining, small fragments of stool or opaque liquid) and Left Colon = 3 (entire mucosa seen well with no residual staining, small fragments of stool or opaque liquid). The total BBPS score equals 8. The quality of the bowel preparation was good. Findings: The terminal ileum appeared normal. The cecum appeared normal. A few small and large-mouthed diverticula were found in the ascending colon. The descending colon and transverse colon appeared normal. A few small-mouthed diverticula were found in the sigmoid colon. A 3 mm polyp was found in the sigmoid colon. The polyp was sessile. Polypectomy was not attempted due to anticoagulation. A few flat polyps were found in the rectum. The polyps were 1 to 2 mm in size. Polypectomy was not attempted due to anticoagulation. Non-bleeding internal hemorrhoids were found during retroflexion. The hemorrhoids were small. Impression: - The examined portion of the ileum was normal. - The cecum is normal. - Diverticulosis in the ascending colon. - The descending colon and transverse colon are normal. - Diverticulosis in the sigmoid colon. - One 3 mm polyp in the sigmoid colon (approximately 15 cm from anal verge). Resection not attempted. - A few 1 to 2 mm polyps in the rectum. Resection not attempted. - Non-bleeding internal hemorrhoids. - No specimens collected. Recommendation: - Perform a flexible sigmoidoscopy for polypectomy at the next available appointment (golytely prep/off anticoagulation). - Patient's sedation for a repeat study will require Anesthesia staff assistance. - Return to referring physician. Procedure Code(s): --- Professional --- 15880, Colonoscopy, flexible; diagnostic, including collection of specimen(s) by brushing or washing, when performed (separate procedure) Diagnosis Code(s): --- Professional --- K64.8, Other hemorrhoids K63.5, Polyp of colon K62.1, Rectal polyp R19.5, Other fecal abnormalities K57.30, Diverticulosis of large intestine without perforation or abscess without bleeding CPT copyright 2020 [employer]. All rights reserved. The codes documented in this report are preliminary and upon branding machine operator review may be revised to meet current compliance requirements. Attending Participation: Shade Cabello MD 07/06/2022 2:30:36 PM This report has been signed electronically. Number of Addenda: 0 Note Initiated On: 07/06/2022 1:39 PM us Shade Cabello MD DIGESTIVE CARE Final Result [facility] ([facility]) [place], [place] * ALT (SGPT) (08/24/2020 4:14 PM VULCANIZING PRESS OPERATOR) ALT (SGPT) 22 0 - 55 U/L 08/24/2020 6:27 PM VULCANIZING PRESS OPERATOR [facility] Blood Venipuncture / Unknown 08/24/2020 4:14 PM VULCANIZING PRESS OPERATOR 08/24/2020 4:14 PM VULCANIZING PRESS OPERATOR Skye Yip DO LAB_1 Final Result Performing Organization Address [facility]/ZIP Co de Phone Number [facility] [address] [phone] * (ABNORMAL) FIT COLON RECTAL CANCER SCREENING - Year 1 (01/07/2020 8:00 AM CDT) FIT Specimen 1 Positive( A) Negative 01/08/2020 11:55 AM CDT [facility] Stool 01/07/2020 8:00 AM CDT 01/07/2020 4:17 PM CDT Skye Yip DO LAB_1 Final Result Performing Organization Address [facility] de Phone Number [facility] [address] [phone] * PAP Test (06/17/2019 3:22 PM CDT) Case Report Pap Case: [id number] Authorizing Provider: Skye Yip DO Collected: 06/17/2019 03:22 PM Ordering Location: [facility] Received: 06/17/2019 03:45 PM Practice First Screen: Deepali Galdamez Specimen: Pap Test, Routine, Cervix/Endocervix 06/26/2019 12:31 PM T [facility] Pap Specimen Adequacy Satisfactory for evaluation, endocervical/loo sformation zone component absent. 06/26/2019 12:31 PM T [facility] Pap Interpretation Negative for intraepithelial lesion or malignancy (NILM). 06/26/2019 12:31 PM [facility] at 1231 CDT Pap Other Findings Atrophy. 06/26/2019 12:31 PM [facility] Gross Description The specimen is received in SurePath fixative and properly labeled. 1 Pap-stained SurePath slide is prepared. 06/26/2019 12:31 PM [facility] Pap Disclaimer The Pap test is a screening test designed to aid in the detection of cervical cancer and its precursor lesions. It is not a diagnostic procedure and should not be used as the sole means of detecting cervical cancer. Both false-positive and false-negative reports may occur. 06/26/2019 12:31 PM [facility] Embedded Images 9 12:31 PM [facility] Other Specimen Type ENTIRE ENDOCERVIX / Unknown 06/17/2019 3:22 PM CDT 06/17/2019 3:45 PM CDT Comment:LMP: No LMP recorded . Patient is postmenopausal. us Skye Yip DO LAB PATHOLOGY Final Result Performing Organization Address City/[facility]/ZIP Co de Phone Number [facility] [address] [place] [address], [facility] [phone] * Hepatitis C Antibody, with Reflex (09/05/2018 3:09 PM VULCANIZING PRESS OPERATOR) Anti-HCV Negative (Non Reactive) [facility] Comment: Antibodies to HCV not detected. Does not exclude the possibility of exposure to HCV. 09/05/2018 3:09 PM VULCANIZING PRESS OPERATOR 09/05/2018 3:13 PM VULCANIZING PRESS OPERATOR Narrative [facility] - 09/05/2018 6:56 PM VULCANIZING PRESS OPERATOR Performed at [facility], [address] [place] [id number] [address] [employer] DO LAB_1 Final Result [employer] [phone] from Last 3 Months or Most Recently Relevant to Health Maintenance Insurance [employer] MEDICARE REPLACEMENT [facility] [place] [facility]
[2025-08-06 18:25] VITALS: BP 136/84; PULSE 75; RESP 18; TEMP 37.2; O2SAT 97; BMI 22.1
--- NOTE | 2025-08-06 18:57 | ED.GENADULT ---
HPI - General Adult General Chief complaint: Unspecified Complaint, Adult Stated complaint: labs/meds Time Seen by Provider: 08/06/25 18:18 History of Present Illness HPI narrative: This 70-year-old female attempted to make an appointment at the clinic for refill of medications and was told by the nurse to call 911 and come to the emergency department. She stated that she fell 4 days ago and has a hematoma on her left buttock. She is doing well other than pain in this area. She needed refill for warfarin and she had been started on diazepam to treat chronic vertigo symptoms. She states that the diazepam really helped her and her doctor wanted an INR check before refilling these medicines. The patient did not get an appointment in the clinic in came by ambulance here and now states that she has no way to get home. Related Data Home Medications ?Medication ?Instructions ?Recorded ?Confirmed Medical cannabis .Route QHS 11/12/24 07/09/25 meclizine 25 mg tablet mg PO PRN 11/12/24 07/09/25 metoprolol succinate 25 mg mg PO DAILY 11/12/24 07/09/25 tablet,extended release 24 hr lutein 6 mg capsule 6 mg PO QDAY 04/02/25 07/09/25 moringa PO DAILY 04/02/25 07/09/25 magnesium glycinate mg PO DAILY 05/21/25 07/09/25 multivitamin 1 tab PO QDAY 05/21/25 07/09/25 Previous Rx's ?Medication ?Instructions ?Recorded atorvastatin 40 mg tablet 40 mg PO QHS #90 tabs 11/12/24 fluoxetine 40 mg capsule 40 mg PO DAILY #90 caps 11/12/24 amiodarone 200 mg tablet 200 mg PO DAILY #90 tabs 04/02/25 ezetimibe 10 mg tablet 10 mg PO DAILY #90 tabs 04/02/25 gabapentin 100 mg capsule 100 mg PO DAILY #90 caps 04/02/25 carisoprodol 350 mg tablet (Soma) 350 mg PO BID PRN muscle pain #30 04/10/25 tabs methimazole 10 mg tablet 15 mg (1.5 x 10 mg) PO QDAY #90 05/23/25 tabs diazepam 5 mg tablet See Rx Instructions PO .ud PRN 07/01/25 vertigo #30 tabs warfarin 5 mg tablet 5 mg PO QDAY #30 tabs 07/07/25 diazepam 5 mg tablet 5 mg PO QHS PRN #14 tabs 08/06/25 tramadol 50 mg tablet 50 mg PO Q6H PRN pain #10 tabs 08/06/25 warfarin 7.5 mg tablet 7.5 mg PO QDAY #30 tabs 08/06/25 Allergies Allergy/AdvReac Type Severity Reaction Status Date / Time hydrocodone Allergy Vomiting Verified 08/06/25 18:24 Opioids-Methadone and Related AdvReac Severe VOMITTING Verified 07/09/25 15:17 Review of Systems Status of ROS: Reports: 10 or more systems reviewed and unremarkable except as noted in History and below Narrative: Constitutional: No fevers, no weight gain or loss. Eyes: No discharge. No vision changes. HENT: No congestion, no sore throat, no ear pain. Cardiovascular: No chest pain, no palpitations. Respiratory: No shortness of breath, no wheezes, no cough. Gastrointestinal: No abdominal pain, no vomiting, no diarrhea. Genitourinary: No dysuria, no hematuria. Musculoskeletal: Normal range of motion. Skin: No rashes, no pruritis. Neurological: No dizziness, weakness, sensory change, speech change. Chronic vertigo symptoms. Endo/Heme/Allergies: No bruising or bleeding. No polydipsia. Pysch: no suicidality, no anxiety, no insomnia. All other systems reviewed and are negative. 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 (ICD-10) ASCVD (arteriosclerotic cardiovascular disease) ?I25.10 - Atherosclerotic heart disease of [place] coronary artery without angina pectoris (ICD-10) Hyperlipidemia ?E78.5 - Hyperlipidemia, unspecified (ICD-10) Atrial fibrillation ?I48.91 - Unspecified atrial fibrillation (ICD-10) Anxiety ?F41.9 - Anxiety disorder, unspecified (ICD-10) Depression ?F32.A - Depression, unspecified (ICD-10) Chronic headaches ?R51.9 - Headache, unspecified (ICD-10) ?G89.29 - Other chronic pain (ICD-10) Familial tremor ?G25.0 - Essential tremor (ICD-10) Colon polyps ?K63.5 - Polyp of colon (ICD-10) DJD (degenerative joint disease) of knee ?M17.9 - Osteoarthritis of knee, unspecified (ICD-10) Surgical History History of cardiac ablation for atrial fibrillation ?Z98.890 - Other specified postprocedural states (ICD-10) ?I48.91 - Unspecified atrial fibrillation (ICD-10) Status post coronary artery stent placement ?Z95.5 - Presence of coronary angioplasty implant and graft (ICD-10) Status post breast reduction ?Z98.890 - Other specified postprocedural states (ICD-10) Status post tubal ligation ?Z98.51 - Tubal ligation status (ICD-10) Status post right rotator cuff repair ?Z98.890 - Other specified postprocedural states (ICD-10) Status post parathyroidectomy ?Z98.890 - Other specified postprocedural states (ICD-10) ?Z90.89 - Acquired absence of other organs (ICD-10) Status post tonsillectomy and adenoidectomy ?Z90.89 - Acquired absence of other organs (ICD-10) Family History Father Alcoholic Mother Stroke Atrial fibrillation High cholesterol DVT (deep venous thrombosis) Social History Narrative: House 5 children Exam Narrative: Exam Narrative: Constitutional: Well-developed, well-nourished, no acute distress. HEENT: Normocephalic, atraumatic. Neck: Normal range of motion. Nontender. Supple. Heart: Regular. No murmurs. Normal rate. Intact distal pulses. Lungs: Clear to auscultation. No chest discomfort. No wheezes, rhonchi, or rales. Abdomen: Normal bowel sounds. Nontender. No rebound tenderness. Genitalia: Deferred. Back: No midline tenderness. Normal range of motion. Extremities: Normal range of motion. Large bruise in the left buttock. Skin: Intact. No rash. Warm. No erythema or pallor. Neurologic: No altered sensation. No weakness. Alert and oriented. Psychiatric: No suicidality. No anxiety or depression. No insomnia. Nursing notes and vitals signs are reviewed. Const: Vital Signs, click to edit/add: Vital Signs - 24 hr 08/06/25 18:25 Temperature 99 F Pulse Rate [Right Pulse Oximeter] 75 Respiratory Rate 18 Blood Pressure [Ri ght Upper Arm] 136/84 Pulse Oximetry 97 Course Vital Signs Vital signs: Initial Vital Signs Temperature 99 F 08/06/25 18:25 Temperature Source Temporal Artery Scan 08/06/25 18:25 Pulse Rate 75 08/06/25 18:25 Respiratory Rate 18 08/06/25 18:25 Blood Pressure 136/84 08/06/25 18:25 Blood Pressure Mean 101 08/06/25 18:25 Blood Pressure Position Sitting 08/06/25 18:25 Pulse Oximetry 97 08/06/25 18:25 Vital Signs Temperature 99 F 08/06/25 18:25 Pulse Rate 75 08/06/25 18:25 Respiratory Rate 18 08/06/25 18:25 Blood Pressure 136/84 08/06/25 18:25 Pulse Oximetry 97 08/06/25 18:25 Temperature 99 F 08/06/25 18:25 Pulse Rate 75 08/06/25 18:25 Respiratory Rate 18 08/06/25 18:25 Blood Pressure 136/84 08/06/25 18:25 Pulse Oximetry 97 08/06/25 18:25 Medical Decision Making MDM Narrative Medical decision making narrative: This patient is essentially here for refill of her medications which she was hoping to do at clinic. She was diverted here because she had fallen 4 days ago and was been doing well since then. She does have a hematoma with bruising in her left buttock. She states that she needs a refill of her warfarin which she takes 7.5 mg daily. She also started a trial of diazepam which seemed to help her vertigo symptoms significantly. She is seeking a refill of this medicine. I stated that we typically do not refill diazepam but agreed to give her a short supply until she can connect with her primary physician. I did order an INR level drawn here. The results are not going to change her plans for now. She received prescriptions for warfarin, diazepam, and a few tablets of tramadol. Discharge Plan Discharge Clinical Impression: Encounter for medication refill Patient Disposition: Home, Self-Care Condition: Stable Additional Instructions: Take medications as prescribed. Follow-up with clinic for ongoing management. Prescriptions: New warfarin 7.5 mg tablet 7.5 mg PO QDAY Qty: 30 0RF diazepam 5 mg tablet 5 mg PO QHS PRNQty: 14 0RF tramadol 50 mg tablet 50 mg PO Q6H PRN (Reason: pain) Qty: 10 0RF No Action multivitamin Tablet 1 tab PO QDAY magnesium glycinate 100 mg magnesium capsule PO DAILY metoprolol succinate 25 mg tablet extended release 24 hr PO DAILY meclizine 25 mg tablet PO PRN Rx Instructions: FOR VERTIGO Medical cannabis .Route QHS Rx Instructions: uses gummies, flower, tinctures and topical fluoxetine 40 mg capsule 40 mg PO DAILY Qty: 90 3RF atorvastatin 40 mg tablet 40 mg PO QHS Qty: 90 3RF lutein 6 mg capsule 6 mg PO QDAY Rx Instructions: give with meal/snack unknown strength moringa PO DAILY Rx Instructions: unknown strength amiodarone 200 mg tablet 200 mg PO DAILY Qty: 90 1RF gabapentin 100 mg capsule 100 mg PO DAILY Qty: 90 3RF ezetimibe 10 mg tablet 10 mg PO DAILY Qty: 90 3RF carisoprodol [Soma] 350 mg tablet 350 mg PO BID PRN (Reason: muscle pain) Qty: 30 1RF methimazole 10 mg tablet 15 mg PO QDAY Qty: 90 1RF Rx Instructions: This replaces the previous dose of 10 mg daily diazepam 5 mg tablet See Rx Instructions PO .ud PRN (Reason: vertigo) Qty: 30 0RF Rx Instructions: 5 mg QHS orally UD PRN; warfarin 5 mg tablet 5 mg PO QDAY Qty: 30 3RF Protocol: Dose Management Condition: Monday Dose/Route: 0 mg Instruction: 0 tablets Condition: Monday Dose/Route: 0 mg Instruction: 0 tablets Condition: Monday Dose/Route: 0 mg Instruction: 0 tablets Condition: Monday Dose/Route: 7.5 mg Instruction: 1.5 x 5 mg tablets Condition: Dose/Route: 7.5 mg Instruction: 1.5 x 5 mg tablets Condition: Monday Dose/Route: 0 mg Instruction: 0 tablets Condition: Monday Dose/Route: 0 mg Instruction: 0 tablets Protocol Text: Adjustment Start Date: Monday07/09/25 INR Value: 1.0 INR Date: 07/09/25 Recheck Date: 07/11/25 Follow Up/Referrals: Shade Smart MD [Primary Care Provider, Family Practice] Stand Alone Forms: [employer] Info Instructions
[2025-08-06 20:04] LABS: Prothrombin Time 98.6 Seconds
[2025-08-06 20:07] LABS: INR 12.90 (0.91-1.10)
[2025-08-06 20:33] VITALS: BP 131/78; PULSE 79; RESP 18; TEMP 37.2; O2SAT 97
[2025-08-06] MEDS: PHYTONADIONE (VIT K1) 5 MG TABLET PO (20:33)
== END 2025-08-06 20:33 | disposition home or self-care (01) ==
LOC: ED 19:06
PROVIDERS: Emergency Provider Emergency Medicine Emergency Medical Services; PCP Family Medicine
DX: Z76.0 Encounter for issue of repeat prescription (principal); Z79.01 Long term (current) use of anticoagulants
CPT/HCPCS: 36415; 85610; 99283; 99284

== ENCOUNTER 2025-09-29 14:41 | Outpatient (CLI) | payer MEDICARE, SELFPAY | END 2025-09-29 14:42 | disposition home or self-care (01) | PROVIDERS: PCP Family Medicine; Visit Provider Family Medicine | DX: E05.90 Thyrotoxicosis, unspecified without thyrotoxic crisis or storm (principal) | CPT/HCPCS: 80061; 84439; 84443 ==